=== PATIENT | male | born 1990 | race Caucasian/White ===

== ENCOUNTER 2018-09-13 20:50 | Emergency (ER) | payer SELFPAY | END 2018-09-13 21:45 | disposition home or self-care (01) | LOC: MADERS 20:50 → MERGE 20:50 → MADERS 21:45 | DX: H92.02 Otalgia, left ear (principal); F17.210 Nicotine dependence, cigarettes, uncomplicated | CPT/HCPCS: 99282 ==

== ENCOUNTER 2020-06-08 09:25 | Emergency (ER) | payer OTHER, SELFPAY ==
[2020-06-08 22:12] LABS: SARS-CoV-2 PCR by NAA Not Detected (NotDetected)
== END 2020-06-08 10:14 | disposition home or self-care (01) ==
LOC: MADERS 09:25
DX: J06.9 Acute upper respiratory infection, unspecified (principal); Z20.822 Contact with and (suspected) exposure to COVID-19; Z71.6 Tobacco abuse counseling; F17.210 Nicotine dependence, cigarettes, uncomplicated
CPT/HCPCS: 87635; 99406; U0003; U0005

== ENCOUNTER 2021-01-18 11:12 | Emergency (ER) | payer SELFPAY ==
[2021-01-18] MEDS ORDERED: Sodium Chloride 0.9% 1,000 ML ONE (11:42)
[2021-01-18 12:09] LABS: #Basophils 0.1 thou/uL (0.0-0.2); #Eosinphils 0.1 thou/uL (0.0-0.7); #Lymphocytes 1.3 thou/uL (1.20-3.40); #Monocytes 0.8 thou/uL (0.11-0.59); %Basophils 0.9 % (0.0-1.0); %Eosinophils 1.2 % (0.0-10.0); %Lymphocytes 12.4 % (21.0-51.0); %Monocytes 7.9 % (0.0-10.0); %Neutrophils 77.6 % (42.0-75.0); Hemoglobin 16.8 g/dL (14.0-18.0); Mean Corpuscular HGB CONC 31.9 g/dL (32.0-36.0); Mean Corpuscular Hemoglobin 29.1 pg (27.0-31.0); Mean Platelet Volume 9.6 fL (7.4-10.4); Platelet Count 243 thou/uL (130-400); RBC Distribution Width 12.2 % (11.5-14.5); Red Blood Cell (RBC) Count 5.77 mill/uL (4.70-6.10); White Blood Cell (WBC) Count 10.4 thou/uL (4.8-10.8)
[2021-01-18 12:21] LABS: ALT (SGPT) 16 U/L (8-55); AST (SGOT) 19 U/L (5-34); Albumin 4.7 g/dL (3.5-5.0); Alkaline Phosphatase 64 U/L (40-110); Anion Gap 12 mmol/L (10-20); BUN (Urea Nitrogen) 13 mg/dL (8.9-20.6); Bilirubin, Total 0.6 mg/dL (0.2-1.2); Calc. Creatinine Clearance 0 mL/min (70-130); Calcium 9.5 mg/dL (7.8-10.44); Carbon Dioxide 25 mmol/L (22-29); Chloride 106 mmol/L (98-107); Glucose 98 mg/dL (70-105); Lipase 11 U/L (8-78); Potassium 4.2 mmol/L (3.5-5.1); Protein, Total 7.7 g/dL (6.0-8.3); Sodium 139 mmol/L (136-145)
== END 2021-01-18 12:45 | disposition home or self-care (01) ==
LOC: MADERS 11:12
DX: K52.9 Noninfective gastroenteritis and colitis, unspecified (principal); F17.210 Nicotine dependence, cigarettes, uncomplicated
CPT/HCPCS: 80053; 83690; 83735; 85025; 99284; J7050

== ENCOUNTER 2021-03-08 09:31 | Emergency (ER) | payer SELFPAY ==
[2021-03-08] MEDS ORDERED: Ketorolac Tromethamine 60 MG/2 ML VIAL ONE (10:29)
[2021-03-08 20:35] LABS: SARS-CoV-2 PCR by NAA DETECTED (NotDetected)
== END 2021-03-08 11:52 | disposition home or self-care (01) ==
LOC: MADERS 09:31
DX: U07.1 COVID-19 (principal); F17.210 Nicotine dependence, cigarettes, uncomplicated
CPT/HCPCS: 87804; 96372; 99283; J1885; U0003; U0005

== ENCOUNTER 2021-03-17 12:02 | Emergency (ER) | payer SELFPAY ==
[2021-03-17 13:45] LABS: #Basophils 0.1 thou/uL (0.0-0.2); #Monocytes 0.9 thou/uL (0.11-0.59); #Neutrophils 6.3 thou/uL (1.40-6.50); %Basophils 0.9 % (0.0-1.0); %Eosinophils 0.4 % (0.0-10.0); %Lymphocytes 21.4 % (21.0-51.0); %Monocytes 9.3 % (0.0-10.0); %Neutrophils 67.9 % (42.0-75.0); Hemoglobin 16.2 g/dL (14.0-18.0); Mean Corpuscular HGB CONC 33.2 g/dL (32.0-36.0); Mean Corpuscular Volume 87.5 fL (78.0-98.0); Mean Platelet Volume 9.1 fL (7.4-10.4); Platelet Count 237 thou/uL (130-400); Prothrombin Time 13.3 sec (12.0-14.7); RBC Distribution Width 11.3 % (11.5-14.5); Red Blood Cell (RBC) Count 5.59 mill/uL (4.70-6.10); White Blood Cell (WBC) Count 9.3 thou/uL (4.8-10.8)
[2021-03-17 13:53] LABS: ALT (SGPT) 16 U/L (8-55); AST (SGOT) 17 U/L (5-34); Albumin 4.5 g/dL (3.5-5.0); Alkaline Phosphatase 52 U/L (40-110); Anion Gap 18 mmol/L (10-20); BUN (Urea Nitrogen) 16 mg/dL (8.9-20.6); Bilirubin, Total 1.3 mg/dL (0.2-1.2); Calc. Creatinine Clearance 0 mL/min (70-130); Calcium 9.4 mg/dL (7.8-10.44); Carbon Dioxide 20 mmol/L (22-29); Chloride 106 mmol/L (98-107); Globulin 3.2 g/dL (2.4-3.5); Glucose 89 mg/dL (70-105); Potassium 4.5 mmol/L (3.5-5.1); Protein, Total 7.7 g/dL (6.0-8.3); Sodium 139 mmol/L (136-145)
[2021-03-17] MEDS ORDERED: Meclizine HCl 25 MG TAB ONE (14:46)
== END 2021-03-17 15:25 | disposition home or self-care (01) ==
LOC: MADERS 12:02
DX: H81.399 Other peripheral vertigo, unspecified ear (principal); F17.210 Nicotine dependence, cigarettes, uncomplicated
CPT/HCPCS: 36415; 70450; 80053; 85025; 85610; 93005

== ENCOUNTER 2023-09-12 10:24 | Outpatient (CLI) | payer OTHER | END 2023-09-12 10:25 | disposition home or self-care (01) | LOC: MADRAD 10:24 | PROVIDERS: ATTEND Physician Assistant | DX: M54.50 Low back pain, unspecified (principal); M47.816 Spondylosis without myelopathy or radiculopathy, lumbar region; M43.8X6 Other specified deforming dorsopathies, lumbar region | CPT/HCPCS: 72100 ==

== ENCOUNTER 2023-10-20 03:36 | Emergency (ER) | payer OTHER | END 2023-10-20 04:28 | disposition home or self-care (01) | LOC: MADERS 03:36 | DX: M54.16 Radiculopathy, lumbar region (principal); F17.210 Nicotine dependence, cigarettes, uncomplicated | CPT/HCPCS: 99283 ==